=== PATIENT | female | born 1990 | race Caucasian/White ===

== ENCOUNTER 2019-05-28 01:24 | Inpatient (IN) | payer OTHER ==
[2019-05-28] MEDS ORDERED: Sodium Chloride 0.9% 10 ML Syringe FLUSH PRN (02:36)
[2019-05-28] MEDS ORDERED: Nalbuphine 10 MG/ML Syringe IVPUSH PRN (02:36)
[2019-05-28] MEDS ORDERED: Oxytocin/Lactated Ringers 10 UNIT/1,000 ML BAG IV SCH (02:45)
[2019-05-28] MEDS: Lactated Ringers 1,000 ML IV SCH ×2 (04:20→05:40)
--- NOTE | 2019-05-28 06:30 | PCM.LDHP ---
L&D History of Present Illness - General Date of Service: 05/28/19 Admit Problem/Dx: Patient Status Order with Admit Dx/Problem 05/28/19 01:33 Patient Status [ADT] Routine 05/28/19 02:40 Patient Status [ADT] Routine Admission Diagnosis/Problem Admission Diagnosis/Problem 05/28/19 06:19 Lucretia is a 28-year-old 1 para 0 white female at 40-2/7 weeks gestational age with an AZEB of 05/26/2019 who was admitted in active labor with progressive cervical dilation. Source of Information: Patient History Limitations: Reports: No Limitations - History of Present Illness Introduction:: Lucretia is a 28-year-old 1 para 0 white female at 40-2/7 weeks gestational age with an AZEB of 05/26/2019 who was admitted in active labor with progressive cervical dilation.To begin labor within the last 12 hours. His progressed to contractions every 3-5 minutes. She was 4 cm dilated appears to be leaking a small amount of amniotic fluid. Baby is in cephalic presentation. heart tones are reassuring. Patient desires natural labor. [employer] history: AZEB of 05/26/2019 start determined by an ultrasound done on 2018 at 14-6/7 weeks gestational age. This supported by second ultrasound done on 01/13/2019. Patient's last menstrual period was 08/25/2018. She has regular 2829 day cycles. Menarche age 14. HCG was positive on 09/19/2018. course : Patient was seen early in the and on a regular basis. Weight gain in was from 144-173.8 pounds for proximately a 30 pound weight gain. Vital signs were stable throughout the course. Fundal height growth was appropriate. The patient was a minimalist as regard to care. Declined 1 hour GTT. Declined flu shot and her T dap immunization. She did decline group B strep screen. She wished to not be asked again about the group B strep screen. He was made aware of potential implications of not receiving recommended care. She declined centering . She declined genetic evaluation. She essentially desired a very low intervention course and labor and delivery. She plans to breast-feed. Laboratory testing and shows blood to be O+ with a negative antibody screen. Hemoglobin is 14.6 g/dL at first visit and platelets were 2 172 ,000. She is rubella immune. RPR is nonreactive. Hepatitis B surface antigen is negative as was HIV testing. Her chlamydia and gonorrhea tests were both negative. Patient refused second trimester testing with the exception of a CBC to check platelets. On 04/03/2019 her platelet count was 145,000. Her hemoglobin at that time was 14.4. Allergies: None Medications: vitamins daily Past medical history: 1. Intermittent anxiety 2. Varicose veins 3. Acne Past surgical history: 1. 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 Father is alive and well but has high cholesterol and is on antidepressant medication. 4 brothers tube diagnosed with bipolar disease with one being on medication. Maternal grandmother is alive and well at age 84. Maternal grandfather is alive and well with heart disease at age 86. Paternal grandmother secondary to multiple myeloma. Internal grandfather is deceasedcause unknown. There is no family history of cancer otherwise, bleeding or blood clotting disorders, anesthesia related issues or related issues. Social history: Patient is . Lives in [place], [place]. 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 is [place]. She does not use any significant most alcohol, drugs or tobacco. Review of systems: In general patient has no complaints. Skin: Negative Lungs: No infectious symptoms or shortness of breath Cardiovascular: No chest pain or exercise intolerance Breasts: No lumps, changes in size, pain, dimpling, discharge or axillary or supraclavicular concerns. Changes associated with . GI: Negative : changes Musculoskeletal: Negative Neurological: Negative In general the patient is well-developed, well-nourished, pleasant female of stated age in no acute distress. On last evaluation in clinic on 05/13/2019 blood pressure is 122/80. Weight was 173.8 pounds. heart rate is 154. Pregravid weight was 144. Height is 5 feet 5. Prepregnancy body mass index is 22.5. Skin is warm dry without lesions. HEENT, neck and back within normal limits. Lungs are clear with good breath sounds in all lung chilel. Cardiovascular exam shows regular and rhythm without murmurs. Breast exam not done at this time having been done at first visit and found to be normal. Abdomen is flat, soft, nontender without masses or organomegaly. Positive bowel sounds are noted. No inguinal lymphadenopathy or hernias are noted. Genital per speculum bimanual shows normal external genitalia, BUS, pubic hair pattern. There is normal support, secretions and estrogenization vagina. Uterus is small, anterior, freely mobile, without parametrial induration or adnexal abnormalities. Extremities and neurological exam are grossly within normal limits. - Related Data Allergies/Adverse Reactions: Allergies Allergy/AdvReac Type Severity Reaction Status Date / Time No Known Allergies Allergy Verified 05/28/19 01:32 Past Medical History HEENT History: Reports: None Respiratory History: Reports: None Gastrointestinal History: Reports: None Genitourinary History: Reports: Other (See Below) Other Genitourinary History: UTI x 1 early in [employer] History: Reports: Musculoskeletal History: Reports: Other (See Below) Other Musculoskeletal History: syndactyly surgery in infancy Neurological History: Reports: None Other Psychiatric History: hx of anxiety though no diagnosis of such, no meds Endocrine/Metabolic History: Reports: None Hematologic History: Reports: Other (See Below) Other Hematologic History: thyombocytopenia in later Immunologic History: Reports: None Oncologic (Cancer) History: Reports: None Dermatologic History: Reports: None - Infectious Disease History Infectious Disease History: Reports: None - Past Surgical History Head Surgeries/Procedures: Reports: None HEENT Surgical History: Reports: Oral Surgery Other HEENT Surgeries/Procedures: wisdom teeth Cardiovascular Surgical History: Reports: None Respiratory Surgical History: Reports: None GI Surgical History: Reports: None Female Surgical History: Reports: None Other Female Surgeries/Procedures: No hx of ever having had a pap smear prior to Endocrine Surgical History: Reports: None Neurological Surgical History: Reports: None Musculoskeletal Surgical History: Reports: None Oncologic Surgical History: Reports: None Dermatological Surgical History: Reports: None Social & Family History - Family History Family Medical History: Noncontributory - Tobacco Use Smoking Status *Q: Never Smoker Second Hand Smoke Exposure: No - Caffeine Use Caffeine Use: Reports: Coffee Other Caffeine Use: daily coffee, 1-2 cups - Recreational Drug Use Recreational Drug Use: No H&P Review of Systems - Review of Systems: Review Of Systems: See Below L&D Exam - Exam Exam: See Below - Vital Signs Vital Signs: Last Vital Signs Temp 37.3 C 05/28/19 01:33 Pulse 88 05/28/19 01:33 Resp 18 05/28/19 01:33 BP 108/68 05/28/19 01:33 Pulse Ox 99 05/28/19 01:33 Weight: 79.379 kg - Patient Data Lab Results Last 24 hrs: Laboratory Results - last 24 hr 05/28/19 Range/Units 03:00 WBC 17.16 H (3.98-10.04) K/mm3 RBC 4.83 (3.98-5.22) M/mm3 Hgb 15.2 (11.2-15.7) gm/dl Hct 45.5 H (34.1-44.9) % MCV 94.2 (79.4-94.8) fl MCH 31.5 (25.6-32.2) pg MCHC 33.4 (32.2-35.5) g/dl RDW Std Deviation 45.0 (36.4-46.3) fL Plt Count 164 L (182-369) K/mm3 MPV 10.7 (9.4-12.3) fl Neut % (Auto) 80.4 H (34.0-71.1) % Lymph % (Auto) 12.5 L (19.3-51.7) % Swain % (Auto) 6.1 (4.7-12.5) % Eos % (Auto) 0.2 L (0.7-5.8) Baso % (Auto) 0.1 (0.1-1.2) % Neut # (Auto) 13.78 H (1.56-6.13) K/mm3 Lymph # (Auto) 2.15 (1.18-3.74) K/mm3 Swain # (Auto) 1.05 H (0.24-0.36) K/mm3 Eos # (Auto) 0.04 (0.04-0.36) K/mm3 Baso # (Auto) 0.02 (0.01-0.08) K/mm3 Manual Slide Review Abnormal smear Result Diagrams: 05/28/19 03:00 Problem List Initiated/Reviewed/Updated: Yes Orders Last 24hrs: Active Orders 24 hr Category Date Time Status Patient Status [ADT] Routine ADT 05/28/19 02:40 Active Activity as Tolerated [RC] PFP Care 05/28/19 02:40 Active Communication Order [RC] ASDIRECTED Care 05/28/19 02:40 Active Heart Tones [RC] ASDIRECTED Care 05/28/19 02:43 Active Notify Provider [RC] PFP Care 05/28/19 02:40 Active Notify Provider [RC] PRN Care 05/28/19 02:40 Active Peripheral IV Care [RC] Q2HR Care 05/28/19 02:43 Active Vaginal Exam [RC] PRN Care 05/28/19 01:33 Active Vital Signs [RC] PER UNIT ROUTINE Care 05/28/19 01:33 Active Regular Diet [DIET] Diet 05/28/19 Breakfast Active Lactated Ringers [Ringers, Lactated] 1,000 ml Med 05/28/19 02:45 Active IV ASDIRECTED Nalbuphine [Nubain] Med 05/28/19 02:36 Active 10 mg IVPUSH Q2H PRN Oxytocin/Lactated Ringers [Pitocin in LR 10 Units/1,000 Med 05/28/19 02:45 Active ML] 10 unit in 1,000 ml IV .CONTINUOUS Sodium Chloride 0.9% [Saline Flush] Med 05/28/19 02:36 Active 10 ml FLUSH ASDIRECTED PRN Electronic Heart Tones Ext w TOCO [WOMSER] Oth 05/28/19 02:40 Ordered Routine Electronic Heart Tones Internal [WOMSER] Per Unit Oth 05/28/19 02:40 Ordered Routine Peripheral IV Insertion Adult [OM.PC] Routine Oth 05/28/19 02:40 Ordered Resuscitation Status Routine Resus Stat 05/28/19 01:32 Ordered Medication Orders Lactated Ringer's (Ringers, Lactated) 1,000 mls @ 100 mls/hr IV ASDIRECTED BRYNN Last Admin: 05/28/19 04:20 Dose: 999 mls/hr Oxytocin/Lactated Ringer's (Pitocin In Lr 10 Units/1,000 Ml) 10 unit in 1,000 mls @ 500 mls/hr IV .CONTINUOUS BRYNN Nalbuphine HCl (Nubain) 10 mg IVPUSH Q2H PRN PRN Reason: Pain Sodium Chloride (Saline Flush) 10 ml FLUSH ASDIRECTED PRN PRN Reason: Keep Vein Open Assessment/Plan Comment:: Assessment: 1. 40-2/7 week intrauterine , active labor, progressive cervical dilation. Patient appeared to have a leak of amniotic fluid. 2. Patient desires minimal intervention. As per history she has declined most interventions including group B strep evaluation. She prefers to do things"naturally"and feels that group B strep, T dap, flu immunization, genetic testing on do not fall within that category. She also declines at the time of admission group B strep prophylaxis as would be recommended in an unevaluated patient labor. 3. Patient desires natural labor 4. Patient plans to breast-feed. 5. Patient has had a mildly decreased platelet with last platelet count 145,000. Plan: 1. Anticipate normal spontaneous vaginal delivery 2. Patient has accepted IV access as part of her care and has accepted intermittent electronic monitoring. 3. Support breast-feeding decision 4. We'll have pediatrics be made aware of patient's minimal intervention desire.
[2019-05-28] MEDS ORDERED: Lidocaine 1% 50 ML MDV ONE (07:15)
[2019-05-28] MEDS ORDERED: Lidocaine 1% 50 ML MDV INJECT PRN (07:45)
[2019-05-28] MEDS ORDERED: Benzocaine/Menthol 20%-0.5% Spray 56 GM Canister TOP PRN (10:25)
[2019-05-28] MEDS ORDERED: Witch Hazel Medicated Pads 40/Jar TOP PRN (10:25)
[2019-05-28] MEDS ORDERED: Acetaminophen 325 MG Tab PO PRN (10:25)
[2019-05-28] MEDS: Ibuprofen 600 MG Tab PO PRN ×3 (10:56→20:59)
[2019-05-28] MEDS: Docusate Sodium 100 MG Cap PO PRN (21:00)
--- NOTE | 2019-05-29 05:27 | PCM.SN ---
- Free Text/Narrative Note: note: Patient is doing well in the period. Minimal lochia, voiding well, ambulated without problems. Nursing without concerns. Patient is afebrile, vital signs are stable Abdomen is flat, soft, uterus is below the umbilicus and is firm and nontender. Legs are nontender. Assessment: recovery going well. Plan: Routine care. Patient be discharged home within the next 24-48 hours.
--- NOTE | 2019-05-29 05:43 | PCM.SN ---
- Free Text/Narrative Note: Lucretia is a 28-year-old 1 para 0 white female at 40-2/7 weeks gestational age with an AZEB of 05/26/2019 who was admitted in active labor with progressive cervical dilation.To begin labor within the last 12 hours. Labor had progressed to contractions every 3-5 minutes. She, on admission, was 4 cm dilated and appeared to be leaking a small amount of amniotic fluid. Baby is in cephalic presentation. heart tones are reassuring. Patient desired natural labor. Patient progressed steadily towards complete cervical dilation. At 0913 hrs. on 05/28/2019 she delivered a viable, stapleton, male with Apgars of 9 and 9, weight 3230 g menses 7 pounds 1.9 ounces), a length of 20.0 inches in a left occiput anterior position. Baby was placed on mom's abdomen cord was allowed to pulsate for several minutes. Adequate pulsating the cord was clamped 2 and cut by the baby's father. IV Pitocin was increased to 500 mL per hour to increase uterine tone and decrease the risk for uterine bleeding. There is a bulb suction. Cord blood was obtained. The second-degree perineal laceration was repaired with 3-0 Monocryl in a routine fashion. The placenta delivered at 0918 hrs. in a [place] presentation, appeared intact and complete and was discarded per patient desire. The patient plans to breast-feed. Estimated blood loss was 100 mL. Condition: Good.
[2019-05-29] MEDS: Ibuprofen 600 MG Tab PO PRN (09:27)
[2019-05-29] MEDS: Docusate Sodium 100 MG Cap PO PRN (09:30)
--- NOTE | 2019-05-29 16:06 | PCM.DCSUM1 ---
Discharge Summary - Hospital Course HPI Initial Comments: Lucretia is a 28-year-old 1 para 0 white female at 40-2/7 weeks gestational age with an AZEB of 05/26/2019 who was admitted in active labor with progressive cervical dilation.she was noted to have begun labor within the last 12 hours. Upon admission labor had progressed to contractions every 3-5 minutes. She, on admission, was 4 cm dilated and appeared to be leaking a small amount of amniotic fluid. Baby is in cephalic presentation. heart tones are reassuring. Patient desired natural labor. It should be noted the patient had declined multiple recommended interventions during her course of care. These included group B strep evaluations, immunizations and some evaluations. Upon admission she declined group B strep prophylaxis despite a rather in-depth, detail discussion of why it is recommended. She wanted to do things "naturally". Patient progressed steadily towards complete cervical dilation. At 0913 hrs. on 05/28/2019 she delivered a viable, stapleton, male infant with Apgars of 9 and 9, weight 3230 g menses 7 pounds 1.9 ounces), a length of 20.0 inches in a left occiput anterior position. Baby was placed on mom's abdomen cord was allowed to pulsate for several minutes. Adequate pulsating the cord was clamped 2 and cut by the baby's father. IV Pitocin was increased to 500 mL per hour to increase uterine tone and decrease the risk for uterine bleeding. Baby's nose and mouth were bulb suctioned. Cord blood was obtained. The second-degree perineal laceration was repaired with 3-0 Monocryl in a routine fashion. The placenta delivered at 0918 hrs. in a [place] presentation, appeared intact and complete and was discarded per patient desire. The patient plans to breast-feed. Estimated blood loss was 100 mL. patient has done very well. She is nursing without significant problems, has minimal lochia, has had normal vital signs and is ambulating well. She is very adamant about going home on the first day with the baby despite financial assistant's recommendation to stay until 48 hours from the time of delivery. I have expressed to her and her the importance of following the pediatricians recommendations and that I agree wholeheartedly with those recommendations from the perspective of her news editor. Despite this patient is insisting on going home with the baby. She plans to sign the baby out AMA. Diagnosis: Stroke: No - Discharge Data Discharge Date: 05/29/19 Discharge Disposition: Home, Self-Care 01 Condition: Good - Referral to Home Health Primary Care Physician: Louie Trevino MD - Patient Instructions Diet: Regular Diet as Tolerated (Nursing diet with increased calcium and calories as recommended) Activity: As Tolerated (No intercourse or tampons until bleeding resolves) Driving: May Drive Today Showering/Bathing: May Shower (May take a bath) Notify Provider of: Fever, Increased Pain, Swelling and Redness, Nausea and/or Vomiting - Discharge Plan Home Medications: Home Meds Acetaminophen [Tylenol] 650 mg PO Q4H PRN tablet 05/29/19 [Rx] Ibuprofen [Motrin] 600 mg PO Q4H PRN tablet 05/29/19 [Rx] Referrals: Louie Trevino MD [Primary Care Provider] - (Return to clinicDr. Trevino2 weeks.) - Discharge Summary/Plan Comment DC Time >30 min.: No Discharge Summary/Plan Comment: Discharge instructions: 1. Discharge home 2. Diet, activity and follow-up discussed with patient. Recommend nursing diet with increased calories and calcium. 3. Precautions given concern increased pain, bleeding, temperature, signs/ symptoms of DVT/PE. 4. Medications per home medication was printed, discussed with and given to the patient. 5. Return to clinic-Dr. Trevino[facility] in 2 weeks. Diagnosis: Term -delivered Condition: Good - Patient Data Vitals - Most Recent: Last Vital Signs Temp 37.3 C 05/29/19 15:04 Pulse 82 05/29/19 15:04 Resp 18 05/29/19 15:04 BP 118/81 05/29/19 15:04 Pulse Ox 97 05/29/19 15:04 Weight - Most Recent: 79.379 kg I&O - Last 24 hours: Intake & Output 05/29/19 05/29/19 05/29/19 06:59 14:59 22:59 Intake Total 180 Balance 180 Lab Results - Last 24 hrs: Laboratory Results - last 24 hr 05/29/19 Range/Units 05:24 WBC 14.59 H (3.98-10.04) K/mm3 RBC 4.01 (3.98-5.22) M/mm3 Hgb 12.4 D (11.2-15.7) gm/dl Hct 38.5 (34.1-44.9) % MCV 96.0 H (79.4-94.8) fl MCH 30.9 (25.6-32.2) pg MCHC 32.2 (32.2-35.5) g/dl RDW Std Deviation 46.1 (36.4-46.3) fL Plt Count 146 L (182-369) K/mm3 MPV 11.0 (9.4-12.3) fl Med Orders - Current: Current Medications Acetaminophen (Tylenol) 650 mg PO Q4H PRN PRN Reason: mild pain or fever Benzocaine/Menthol (Dermoplast Pain Relief Doucette) 0 gm TOP ASDIRECTED PRN PRN Reason: Perineal Comfort Measure Last Admin: 05/28/19 10:55 Dose: 1 can Docusate Sodium (Colace) 100 mg PO BID PRN PRN Reason: Constipation Last Admin: 05/29/19 09:30 Dose: 100 mg Ibuprofen (Motrin) 600 mg PO Q4H PRN PRN Reason: Mild pain or fever Last Admin: 05/29/19 09:27 Dose: 600 mg Lidocaine HCl (Xylocaine 1%) 50 ml INJECT ONETIME PRN PRN Reason: Pain Last Admin: 05/28/19 09:23 Dose: 50 ml Sodium Chloride (Saline Flush) 10 ml FLUSH ASDIRECTED PRN PRN Reason: Keep Vein Open Witvince Zee (Tucks) 1 pad TOP ASDIRECTED PRN PRN Reason: Pain Last Admin: 05/28/19 10:55 Dose: 1 container Discontinued Medications Lactated Ringer's (Ringers, Lactated) 1,000 mls @ 100 mls/hr IV ASDIRECTED BRYNN Last Admin: 05/28/19 05:40 Dose: 50 mls/hr Oxytocin/Lactated Ringer's (Pitocin In Lr 10 Units/1,000 Ml) 10 unit in 1,000 mls @ 500 mls/hr IV .CONTINUOUS BRYNN Last Admin: 05/28/19 09:15 Dose: 500 mls/hr Lidocaine HCl (Xylocaine 1%) Confirm Administered Dose 50 ml .ROUTE .STK-MED ONE Stop: 05/28/19 07:16 Last Admin: 05/28/19 07:47 Dose: Not Given Nalbuphine HCl (Nubain) 10 mg IVPUSH Q2H PRN PRN Reason: Pain
== END 2019-05-29 16:55 | disposition home or self-care (01) | DRG 807 ==
LOC: JD.OBCHECK 01:24 → JD.OB 01:28 → JD.OBCHECK 02:40 → JD.OB 03:13 → OBSVTOIN 09:13 → JD.OB 09:14
PROVIDERS: ADMIT Obstetrics & Gynecology; ATTEND Obstetrics & Gynecology
PROC: 10E0XZZ Delivery of Products of Conception, External Approach (ICD-10-PCS; principal; 2019-05-29)
PROC: 0KQM0ZZ Repair Perineum Muscle, Open Approach (ICD-10-PCS; 2019-05-29)
DX: O48.0 Post-term pregnancy (principal); Z37.0 Single live birth; Z3A.40 40 weeks gestation of pregnancy; O70.1 Second degree perineal laceration during delivery; Z79.899 Other long term (current) drug therapy
CPT/HCPCS: 36415; 59025; 59409; 85025; 85027; A9270-GY; J2001; J2590; J7120

== ENCOUNTER 2022-07-22 18:23 | Emergency (ER) | payer SELFPAY | END 2022-07-22 19:25 | disposition home or self-care (01) | LOC: JD.ED 18:23 | DX: O23.41 Unspecified infection of urinary tract in pregnancy, first trimester (principal); N39.0 Urinary tract infection, site not specified; Z3A.01 Less than 8 weeks gestation of pregnancy | CPT/HCPCS: 81001; 87086; 87088; 87186; 99283 ==